=== PATIENT | male | born 1985 ===

== ENCOUNTER 2019-10-05 09:19 | Emergency (ER) | payer BC ==
[2019-10-05 10:47] LABS: Influenza A Molecular Negative (Negative); Influenza B Molecular Negative (Negative)
--- NOTE | 2019-10-05 10:59 | UC ---
General HPI - HPI Summary HPI Summary: States for the past week he has had temp 99.8-101 off and on. About 4-5 days ago, he had no fever for 2 days. Then went to a concert and feels like the past few days he continues to have this productive cough with thick mucus and it often feels like there is something stuck in this throat because of it. Low grade temp of 99.8 persists. He often gets feeling of food stuck and even when he feels well he often feels like there is something stuck in this throat. Has asthma - he uses an inhaler without a spacer. STates he has been using it about 2x/day. Meds: reviewed - History of Current Complaint Chief Complaint: UCRespiratory Stated Complaint: CHEST CONGESTION Time Seen by Provider: 10/05/19 10:42 Pain Intensity: 0 - Allergy/Home Medications Allergies/Adverse Reactions: Allergies Allergy/AdvReac Type Severity Reaction Status Date / Time Penicillins Allergy Vomiting Verified 10/05/19 09:37 Home Medications: Home Medications Albuterol Sulfate [Albuterol Sulfate Hfa] 2 puff PO Q4H PRN 10/05/19 [History Confirmed 10/05/19] Spacer/Holding Chamber (NF) [Easivent CHAMBER (NF)] 1 applic INH Q4HR PRN #1 device 10/05/19 [Rx] predniSONE [Prednisone 20 MG TAB] 40 mg PO DAILY #8 tablet 10/05/19 [Rx] PMH/Surg Hx/FS Hx/Imm Hx Previously Healthy: Yes Respiratory History: Asthma - Surgical History Surgical History: None - Social History Alcohol Use: Occasionally Substance Use Type: None Smoking Status (MU): Never Smoked Tobacco Review of Systems All Other Systems Reviewed And Are Negative: Yes ENT: Positive: Sore Throat, Nasal Discharge Respiratory: Positive: Shortness Of Breath Physical Exam Triage Information Reviewed: Yes Appearance: Well-Appearing Vital Signs: Initial Vital Signs Temp 99.0 F 10/05/19 09:33 Pulse 93 10/05/19 09:33 Resp 20 10/05/19 09:33 BP 137/60 10/05/19 09:33 Pulse Ox 97 10/05/19 09:33 Vital Signs Reviewed: Yes ENT: Positive: Pharyngeal erythema, Nasal congestion, Other - TM's b/l dull Neck: Positive: Supple, Nontender Respiratory: Positive: Decreased breath sounds, Other: - faint b/l expiratory wheezing Cardiovascular: Positive: RRR, No Murmur Diagnostics - Radiology CXR Radiology Interpretation Completed By: Radiologist Summary of Radiographic Findings: no acute findings Course/Dx - Course Course Of Treatment: This is a 34 yr old with low grade temp and persistent cough in setting of asthma CXR: No acute findings Flu: negative Plan Chest xray was negative Recommend mucinex to help with mucus/secretions Recommend Albuterol inhaler with spacer every 4 hours while still coughing a lot (While awake) then change to as needed Recommend prednisone 40 mg daily in AM with food for 4 days If symptoms persist or worsen recommend follow up with PCP or return to urgent care Recommend pulmonary function testing when acute symptoms have improved Recommend discussing with PCP regarding seeing a computer engineering professor for further evaluation - Diagnoses Provider Diagnosis: Reactive airway disease, Viral syndrome Discharge ED - Sign-Out/Discharge Documenting (check all that apply): Patient Departure All imaging exams completed and their final reports reviewed: Yes - Discharge Plan Condition: Fair Disposition: HOME Prescriptions: predniSONE [Prednisone 20 MG TAB] 40 mg PO DAILY #8 tablet Spacer/Holding Chamber (NF) [Easivent CHAMBER (NF)] 1 applic INH Q4HR PRN #1 device PRN Reason: Cough Patient Education Materials: Asthma (ED), Viral Syndrome (ED) Referrals: No Primary Care Phys,NOPCP [Primary Care Provider] - Saniya Patel MD [Medical Doctor] - Additional Instructions: Chest xray was negative Recommend mucinex to help with mucus/secretions Recommend Albuterol inhaler with spacer every 4 hours while still coughing a lot (While awake) then change to as needed Recommend prednisone 40 mg daily in AM with food for 4 days If symptoms persist or worsen recommend follow up with PCP or return to urgent care Recommend pulmonary function testing when acute symptoms have improved Recommend discussing with PCP regarding seeing a computer engineering professor for further evaluation - Billing Disposition and Condition Condition: FAIR Disposition: Home
[2019-10-05 11:38] VITALS: BP 124/71
== END 2019-10-05 12:32 | disposition home or self-care (01) ==
LOC: UCEAST 09:19
DX: J45.909 Unspecified asthma, uncomplicated (principal); B34.9 Viral infection, unspecified; J02.9 Acute pharyngitis, unspecified; R09.89 Other specified symptoms and signs involving the circulatory and respiratory systems; R06.02 Shortness of breath; Z88.0 Allergy status to penicillin
CPT/HCPCS: 71046; 99202; G0463